=== PATIENT | female | born 1955 ===

== ENCOUNTER → 2021-01-24 10:32 | Outpatient (CLI) | payer OTHER, SELFPAY ==
[2021-01-24 20:43] LABS: COVID19 - ORCAS (NP or Nasal) Negative (Negative)
== END ==
PROVIDERS: Visit Provider Physician Assistant Medical
DX: Z20.822 Contact with and (suspected) exposure to COVID-19 (principal)
CPT/HCPCS: U0003

== ENCOUNTER → 2021-01-31 10:41 | Outpatient (CLI) | payer OTHER, SELFPAY ==
[2021-01-31 21:01] LABS: COVID19 - ORCAS (NP or Nasal) Negative (Negative)
== END ==
PROVIDERS: PCP Physician Assistant Medical; Visit Provider Physician Assistant
DX: Z20.822 Contact with and (suspected) exposure to COVID-19 (principal)
CPT/HCPCS: U0003